=== PATIENT | female | born 1980 | race Two or more races ===

== ENCOUNTER 2024-12-21 20:00 | Emergency (ER) | payer MEDICAID, SELFPAY ==
[2024-12-21 20:01] VITALS: BMI 26.5
[2024-12-21 20:44] VITALS: BP 150/89; PULSE 89; RESP 20; TEMP 36.9; O2SAT 97
--- NOTE | 2024-12-21 21:08 | XR_ITS ---
Examination: CT abdomen with intravenous contrast CT pelvis with intravenous contrast 2-D coronal reconstructions 2-D sagittal reconstructions Date and time of exam:November 23, 2024 1110 hrs. Indications: Onset right lower abdominal pain beginning 4 days ago. CTDI: vol (mGy) 7.45 DLP: (mGycm) 396 Technique: Multiple axial sections of the abdomen and pelvis have been obtained. 64 slice high-resolution scanner used. 3 mm axial sections have been obtained, post intravenous injection 60 cc [id number] 2-D sagittal, coronal reconstructions obtained. Low dose protocols were performed. One or more of the following dose reduction techniques were used; automated exposure control, adjustment of the mA and/or KV according to patient size, use of iterative reconstruction technique. Findings: No focal liver or splenic lesions Absent gallbladder No pancreatic or adrenal mass No renal or ureteral calculi, no hydronephrosis Aorta normal size Normal appendix No bowel obstruction No diverticulitis Anteverted uterus Bilateral small ovarian follicular cysts Mild free fluid in the pelvis Urinary bladder intact Mild disc narrowing posteriorly L5-S1 Impression: No renal or ureteral calculi, no hydronephrosis Normal appendix No bowel obstruction diverticulitis or free air Mild free fluid in the pelvis, consider pelvic sonography follow-up
--- NOTE | 2024-12-21 21:09 | EDRME_ITS ---
Rapid Medical Screening Exam [facility] Arrival date/time: 12/21/24 20:00 44F with history of cardiomyopathy (managed with meds) presents to ED with 3 days of worsening RLQ pain and N/V. Patient denies dysuria/hematuria, vaginal bleeding, and diarrhea. Chief Complaint: Abdominal Pain Vital signs: Vital Signs Temperature 98.4 F 12/21/24 20:44 Pulse Rate 89 12/21/24 20:44 Respiratory Rate 20 12/21/24 20:44 Blood Pressure 150/89 H 12/21/24 20:44 Pulse Oximetry (%) 97 12/21/24 20:44 Oxygen Delivery Method Room Air 12/21/24 20:44
[2024-12-21] MEDS: ONDANSETRON INJ 2 MG/ML INJ 2 ML 4 MG IV (21:37)
[2024-12-21 21:39] LABS: Basophils % (Auto) 1 % (0-2.5); Eosinophils # (Auto) 0.1 Thou/mm3 (0.0-0.5); Eosinophils % (Auto) 1 % (0-10); Hematocrit 35.9 % (36.0-46.0); Hemoglobin 11.8 g/dL (12.0-16.0); Immature Granulocytes % (Auto) 0 % (0-0); Immature Granulocytes Auto 0.01 Thou/mm3 (0.00-0.00); Lymphocytes # (Auto) 2.1 Thou/mm3 (1.0-4.8); Lymphocytes % (Auto) 30 % (10-50); Mean Corpuscular HGB Conc 32.9 g/dl (31.0-37.0); Mean Corpuscular Hemoglobin 26.6 pg (25.0-35.0); Mean Corpuscular Volume 81 fL (80-100); Monocytes # (Auto) 0.6 Thou/mm3 (0.0-0.8); Monocytes % (Auto) 8 % (0-12); Neutrophils # (Auto) 4.2 Thou/mm3 (1.8-7.7); Neutrophils % (Auto) 61 % (37-80); Nucleated Red Blood Cell % 0 /100 WBC (0); Platelet Count 233 Thou/mm3 (140-440); RDW Standard Deviation 46.6 fL (36.4-46.3); Red Blood Count 4.43 Miln/mm3 (4.00-5.20)
[2024-12-21 21:57] LABS: Collection Type, Urine Clean Catch
[2024-12-21 22:01] LABS: HCG Qualitative,Urine Negative
[2024-12-21 22:02] LABS: Bacteria,Urine Rare; Bilirubin,Urine Negative (Negative); Blood,Urine Negative (Negative); Clarity,Urine Clear (Clear/Hazy); Color,Urine Lt-Yellow (Lt Yel-Yel); Glucose, Urine Negative (Negative); Ketones,Urine Negative (Negative); Leukocyte Esterase,Urine Negative (Negative); Nitrite,Urine Negative (Negative); Protein,Urine Negative (Neg - Trace); RBC,Urine < 1 /hpf (0-3); Specific Gravity,Urine 1.018 (1.001-1.035); Squamous Epithelial Cell,Urine 2 /hpf (0-5); Urobilinogen,Urine Negative mg/dL (0.0-1.0); WBC,Urine 1 /hpf (0-5)
[2024-12-21 22:07] LABS: Amphetamine/Methamp Scrn,U Negative (Negative); Barbiturate Screen,Urine Negative (Negative); Benzodiazepines Screen,Urine Negative (Negative); Benzoylecgonine Screen, Ur Negative (Negative); Fentanyl Screen,Urine Negative (Negative); Opiate Screen,Urine Negative (Negative); THC Screen,Urine Negative (Negative)
[2024-12-21 22:14] LABS: Alanine Aminotransferase < 7 U/L (10-49); Albumin, Serum 4.3 gm/dL (3.5-5.0); Albumin/Globulin Ratio 1.7 (1.2-2.2); Alkaline Phosphatase 55 U/L (46-116); Anion Gap 8 (7-16); Aspartate Amino Transferase 27 U/L (0-34); BUN/Creatinine Ratio 20 Ratio (12-20); Bilirubin,Total 0.3 mg/dL (0.3-1.2); Blood Urea Nitrogen 16 mg/dL (9-23); Carbon Dioxide 23.5 mMol/L (20.0-31.0); Chloride 110 mMol/L (98-107); Creatinine (Component) 0.8 mg/dL (0.6-1.3); Estimated Creatinine Clearance 80.7 mL/min (>60); Globulin 2.5 gm/dL (2.3-3.5); Glucose 102 mg/dL (74-106); Lipase 50 U/L (12-53); Osmolality,Calculated 282 (275-295); Potassium 4.2 mMol/L (3.4-5.1); Sodium 141 mMol/L (136-145); Total Protein 6.8 gm/dL (5.7-8.2); eGFR > 60 See Note
[2024-12-21] MEDS: MORPHINE SULF INJ 10 MG/ML VIAL 5 MG IVP (23:13)
--- NOTE | 2024-12-22 00:39 | XR_ITS ---
Examination: Transvaginal ultrasound of the pelvis, complete Technique: Transvaginal sonographic images pelvis performed using nice scale imaging Exam date and time: December 22, 2024 0153 hrs. Indications: Left-sided pelvic pain beginning 4 days ago, worse today Findings: Uterus 9.7 cm in mental status 0.2 cm No uterine mass Right ovary 2.6 cm arterial flow Left ovary 3.4 cm arterial flow 18 mm follicular cyst Impression: Left ovarian follicular cyst, 13 x 15 mm.
--- NOTE | 2024-12-22 00:40 | PD.EDABDPN ---
ED Abdominal Pain RME/HPI General Chief Complaint: Abdominal Pain Stated complaint: ABD PAIN, BACK PAIN Time seen by provider: 12/22/24 00:37 Arrival date/time: 12/21/24 20:00 44F with history of HTN, cholecystectomy, cardiomyopathy (managed with meds) presents to ED with 3 days of worsening RLQ pain and N/V. Patient denies dysuria/hematuria, vaginal bleeding, and diarrhea. Patient also denies vaginal discharge and concern for STD. Limitations: no limitations RME / HPI RME / HPI narrative: 12/21/24 20:00 44F with history of cardiomyopathy (managed with meds) presents to ED with 3 days of worsening RLQ pain and N/V. Patient denies dysuria/hematuria, vaginal bleeding, and diarrhea. Related Data Home Medications ?Medication ?Instructions ?Recorded ?Confirmed atorvastatin 20 mg tablet 20 mg PO QDAY 11/11/19 05/05/20 carvedilol 12.5 mg tablet 12.5 mg PO BID 11/11/19 05/05/20 cholecalciferol (vitamin D3) 100 50,000 unit PO QWEEK 11/11/19 05/05/20 mcg (4,000 unit) capsule (Vitamin D3) escitalopram oxalate 10 mg tablet 10 mg PO QDAY 11/11/19 05/05/20 furosemide 20 mg tablet 20 mg PO QDAY 11/11/19 05/05/20 losartan 50 mg tablet 50 mg PO QDAY 11/11/19 05/05/20 spironolactone 25 mg tablet 25 mg PO QDAY 11/11/19 05/05/20 Previous Rx's ?Medication ?Instructions ?Recorded docusate sodium 100 mg capsule 100 mg PO BID #20 caps 11/12/19 (Colace) hydrocodone 5 mg-acetaminophen 325 1 tab PO Q6H PRN pain #14 tabs 11/12/19 mg tablet ([place]) ibuprofen 800 mg tablet 800 mg PO TID PRN pain #30 tabs 07/19/21 ferrous sulfate 324 mg (65 mg 324 mg PO TID #90 tabs 02/05/24 iron) tablet,delayed release pantoprazole 40 mg tablet,delayed 40 mg PO QDAY #30 tabs 02/05/24 release (Protonix) Allergies Allergy/AdvReac Type Severity Reaction Status Date / Time No Known Allergies Allergy Verified 02/01/24 20:12 Past Medical History Past Medical History NEUROLOGIC: Negative Neurological Disorders or Seizures CARDIAC: Positive Cardiac Disorders, Atrial Fibrillation, Hypercholesterolemia (TAKES MED), Cardiomyopathy and Hypertension (TAKES MED); Negative Congestive Heart Failure, Edema, Cellulitis or Varicose Veins RESPIRATORY: Negative Chronic Obstructive Pulmonary Disease (COPD), Asthma, Tuberculosis or Sleep Apnea GASTROINTESTINAL: Positive Gastrointestinal Disorders, Gall Bladder Disease (LAP) and Obesity; Negative Hepatitis GENITOURINARY: Negative Genitourinary Disorders or Renal Disease REPRODUCTIVE: Positive Previous Pregnancies (X3) MUSCULOSKELETAL: Positive Musculoskeletal Disorders and Myasthenia Gravis ENDOCRINE: Positive Diabetes Mellitus Type 2; Negative Endocrine Disorders or Diabetes Mellitus Type 1 HEMATOLOGIC: Negative Blood Disorders or Sickle Cell Disease PSYCHO/SOCIAL: Positive Depression and Anxiety OTHER HISTORY: Positive Hospitalization (HOSP DUE TO IRREGULAR HR 06/07) and Chicken Pox; Negative Autoimmune Disease, Shingles, Falls, Blood Transfusions, Blood Transfusion Reaction, Anesthesia Reactions, Chemotherapy, Radiation Therapy, MRSA, Measles, Mumps or Cancer Family History FAMILY HISTORY: Positive Family Cardiac Disorders (MOTHER (HTN)) and Family Surgery (MOTHER); Negative Family Respiratory Disorders, Family Gastrointestinal Problems, Family Cancer or Family Anesthesia Reaction Surgical History SURGICAL: Positive Cardiac Surgery, Angiogram, Tubal Ligation and Section (X2); Negative Pacemaker, Ear Surgery, Eye Surgery or Nose Surgery Social History SMOKING STATUS: Current some day smoker ED Exam General Limitations: Present no limitations General appearance: Present alert and in no apparent distress Head Head exam: Present atraumatic Eye Eye exam: Present normal appearance, PERRL and EOMI ENT ENT exam: Present normal exam, normal oropharynx and mucous membranes moist Neck Neck exam: Present normal inspection, full ROM and trachea midline Chest Chest inspection: Present normal inspection and symmetric chest wall rise Respiratory Respiratory exam: Present normal lung sounds bilaterally Cardiovascular Cardiovascular exam: Present regular rate, normal rhythm and normal heart sounds Abdominal Exam Abdominal exam: Present soft and normal bowel sounds Abdominal tenderness: Present RLQ (pelvic) Extremities Exam Extremities exam: Present normal inspection and full ROM Back Exam Back exam: Present normal inspection and full ROM Neurological Exam Neurological exam: Present alert, oriented X3 and CN II-XII intact Psychiatric Psychiatric exam: Present normal affect and normal mood Skin Skin exam: Present warm, dry, intact and normal color Course Quality Measures none Orders Category Date Time Status CT Screening NOW Care 12/21/24 21:08 Active Insert IV NOW Care 12/21/24 21:[address] abdomen pelvis w con Stat Exams 12/21/24 21:08 Completed US transvaginal Stat Exams 12/22/24 00:39 Taken CBC Stat Lab 12/21/24 21:34 Completed CMP [Comprehensive Metabolic Panel] Stat Lab 12/21/24 21:34 Completed Drug Screen,Urine Stat Lab 12/21/24 21:43 Completed HCG Qualitative,Urine Stat Lab 12/21/24 21:43 Completed Lipase Stat Lab 12/21/24 21:34 Completed UA [Urinalysis] Stat Lab 12/21/24 21:43 Completed Ketorolac Inj [Toradol Inj] Med 12/22/24 00:39 Discontinued 30 mg IVP X1 ONE Morphine Inj Med 12/21/24 22:59 Discontinued 5 mg IVP X1 ONE Ondansetron Inj [Zofran Inj] Med 12/21/24 21:08 Discontinued 4 mg IV X1 ONE Vital Signs Vital signs: Vital Signs Temperature 98.4 F 12/21/24 20:44 Pulse Rate 89 12/21/24 20:44 Respiratory Rate 20 12/21/24 20:44 Blood Pressure 150/89 H 12/21/24 20:44 Pulse Oximetry (%) 97 12/21/24 20:44 Oxygen Delivery Method Room Air 12/21/24 20:44 O2 at 97% on RA and WNLs Abdominal Pain MDM MDM Narrative MDM Narrative:: 44F with history of HTN, cholecystectomy, cardiomyopathy (managed with meds) presents to ED with 3 days of worsening RLQ pain and N/V. Patient denies dysuria/hematuria, vaginal bleeding, and diarrhea. Patient also denies vaginal discharge and concern for STD. Physical exam reveals RLQ/pelvic tenderness. Patient is afebrile, calm, and alert. CT some free fluid in pelvis, but otherwise unremarkable. No leukocytosis. CMP unremarkable. Lipase normal. HCG neg. Tox screen neg. US pelvic unremarkable as well. L ovarian cyst, but patient's pain is on R side, so unlikely cause of symptoms. Toradol provided much better pain relief than Morphine. Marina Manager given. Patient data External records reviewed:: [facility] previous records Clinical information provided by:: patient Social determinants that could affect healthcare access:: none Patient has the following chronic illnesses:: HTN, cholecystectomy, cardiomyopathy How is presenting disease/condition affected by chronic disease/condition?: uneffected by Evaluation data The following diagnostics were reviewed and interpreted by me:: lab results and radiology exam(s) Lab and/or radiology exams considered but not ordered:: ordered Interpretation Summary: above Medications / Prescriptions Medications or Prescriptions considered but not ordered:: ordered Medication administrations:: Medication Administration History Discontinued Medications Ketorolac Tromethamine (Ketorolac Inj 30 Mg/Ml Vial) 30 mg IVP X1 ONE Stop: 12/22/24 00:40 Last Admin: 12/22/24 01:09 Dose: 30 mg Documented By: OXANA Morphine Sulfate (Morphine Sulf Inj 10 Mg/Ml Vial) 5 mg IVP X1 ONE Stop: 12/21/24 23:00 Last Admin: 12/21/24 23:13 Dose: 5 mg Documented By: OXANA Ondansetron HCl (Ondansetron Inj 2 Mg/Ml Inj 2 Ml) 4 mg IV X1 ONE; Protocol Stop: 12/21/24 21:09 Last Admin: 12/21/24 21:37 Dose: 4 mg Documented By: OXANA above Consultations Consultation(s) initiated? (list below): No Diagnosis Differential diagnosis abdominal pain: abdominal pain, acute appendicitis, calculus of kidney, constipation, diverticulitis, endometriosis, gastroenteritis, pancreatitis, small bowel obstruction and other (torsion, pelvic pain) Most likely diagnosis given after review of the tests above:: pelvic pain Admission Indicated Admission indicated?: not indicated Admission Request Was there a request for admission?: No Disposition Plan Disposition Plan: Discharge Discharge Attestation Discharge Attestation: The patient and all family members were given an opportunity to ask questions and understood the discharge instructions. Discharge instructions specifically effects, indications for sooner follow up or return to the emergency department, and the expected course of current diagnosis. Patient condition: Stable Discharge Plan Plan Patient Disposition: HOME (Self Care) Disposition Comment: Stable Prescriptions/Referrals Prescriptions/Med Rec: No Action losartan 50 mg Tablet 50 mg PO QDAY atorvastatin 20 mg Tablet 20 mg PO QDAY carvedilol 12.5 mg Tablet 12.5 mg PO BID spironolactone 25 mg Tablet 25 mg PO QDAY furosemide 20 mg Tablet 20 mg PO QDAY escitalopram oxalate 10 mg Tablet 10 mg PO QDAY Vitamin D3 4,000 unit Capsule 50,000 unit PO QWEEK docusate sodium [Colace] 100 mg capsule 100 mg PO BID Qty: 20 0RF hydrocodone-acetaminophen [[place]] 5-325 mg tablet 1 tab PO Q6H MDD 4 PRN (Reason: pain) Qty: 14 0RF ibuprofen 800 mg tablet 800 mg PO TID PRN (Reason: pain) Qty: 30 0RF ferrous sulfate 324 mg (65 mg iron) tablet,delayed release (DR/EC) 324 mg PO TID Qty: 90 0RF pantoprazole [Protonix] 40 mg tablet,delayed release (DR/EC) 40 mg PO QDAY Qty: 30 0RF Referrals: No Primary/Family,Physician [Primary Care Provider] - In 1 week Problem List Clinical Impression: Pelvic pain Patient/Caregiver Discharge Instructions Education Materials: ED Pelvic Pain, Unknown Cause Additional Instructions: Please follow-up with PCP/OBGYN within 24-48 hours and return immediately if symptoms worsen. NSAIDs tend to work better for this type of pain. Print Language: Wolof Stand Alone Forms: Patient Portal Info Letter GABRIEL/JESS Supervising Physician GABRIEL/JESS Supervising Physician: Dr. Arias
[2024-12-22] MEDS: KETOROLAC INJ 30 MG/ML VIAL IVP (01:09)
[2024-12-22 01:34] VITALS: BP 148/85; PULSE 65; RESP 17; TEMP 37.1; O2SAT 99
--- NOTE | 2024-12-22 03:27 | PRELIM_ITS ---
Pelvic ultrasound (transabdominal and transvaginal) with Doppler and wave Doppler spectral analysis. December 22, 2024 0153 hours Clinical history: Pelvic pain; free fluid in pelvis on CT Technique: Real-time, grayscale, transabdominal and transvaginal pelvic ultrasound was performed using Duplex scanning including arterial inflow, venous outflow, color and spectral Doppler. Comparison: None. Findings: The uterus is normal in size measuring 9.7 x 4.6 x 5.3 cm. The endometrium is unremarkable and measures 0.2 cm. The right ovary measures 2.6 x 2.4 x 2.0 cm and is unremarkable. The left ovary measures 3.4 x 1.9 x 2.1 cm, with a mildly complex left ovarian cystic lesion measuring 1.3 x 1.1 x 1.5 cm. Both ovaries demonstrate color flow and spectral waveforms on Doppler evaluation. There is no adnexal mass. There is no free fluid on the submitted images. Impression: 1. No evidence of ovarian torsion. 2. No evidence of free fluid in the pelvis. 3. Left ovarian cystic lesion, probably functional. Consider follow-up. Report Electronically Signed By: Mekhi Murray 12/22/2024 3:26:25 AM [EST]
== END 2024-12-22 03:48 | disposition home or self-care (01) ==
PROVIDERS: Physician Assistant; Emergency Provider Emergency Medicine
DX: N83.02 Follicular cyst of left ovary (principal); R10.31 Right lower quadrant pain
CPT/HCPCS: 36415; 74177; 76830; 80053; 80307; 81001; 81025; 83690; 85025; 96374; 96375; 99285; A4649; J1885; J2270; J2405; Q9967

== ENCOUNTER 2025-02-14 18:24 | Emergency (ER) | payer MEDICAID, SELFPAY ==
[2025-02-14 18:25] VITALS: BMI 26.4
[2025-02-14 19:02] VITALS: BP 135/79; PULSE 73; RESP 18; TEMP 37.2; O2SAT 100
--- NOTE | 2025-02-14 19:09 | EKG_ITS ---
[facility] Test Date: 2025-02-14 Pat Name: CINDY NEGRETE Department: Room: - Gender: Female Anesthesia Attending: : 1980 Requested By: Jesús Ortega Order Number: [id number] Reading MD: Jesús Ortega Measurements Intervals [place] Rate: 72 P: 73 LA: 196 QRS: -4 QRSD: 89 T: 88 QT: 396 QTc: 435 Interpretive Statements SINUS RHYTHM WITH OCCASIONAL VENTRICULAR PREMATURE COMPLEXES POSSIBLE LEFT ATRIAL ENLARGEMENT [-0.1mV P-WAVE IN V1/V2] POSSIBLE ANTERIOR MYOCARDIAL INFARCTION , OF INDETERMINATE AGE [30 ms Q WAVE IN V3/V4, OR R < 0.2 mV IN V4] Compared to ECG 07/12/2019 16:07:59 Myocardial infarct finding now present T-wave abnormality no longer present /store/S0/[id number].pdf
--- NOTE | 2025-02-14 19:09 | XR_ITS ---
Examination: PA chest single view TECHNIQUE: Upright PA chest single view Exam date 9: February 14, 2025 1917 hours Comparison August 16, 2019 INDICATIONS: Chest pain and headaches beginning 3 days ago. FINDINGS: Early pneumonia left base obscuring detail left hemidiaphragm Right lung clear No significant cardiac enlargement No pulmonary edema IMPRESSION: Left base pneumonia
--- NOTE | 2025-02-14 19:09 | PD.EDRME ---
Rapid Medical Screening Exam RME Arrival date/time: 02/14/25 18:24 Chief Complaint: Chest Pain Time Seen by Provider: 02/14/25 18:47 Vital signs: Vital Signs Temperature 98.9 F 02/14/25 19:02 Pulse Rate 73 02/14/25 19:02 Respiratory Rate 18 02/14/25 19:02 Blood Pressure 135/79 H 02/14/25 19:02 Pulse Oximetry (%) 100 02/14/25 19:02 Oxygen Delivery Method Room Air 02/14/25 19:02 RME Narrative: Chest tightness and headache x3 days. hx HTN and HF per patient
[2025-02-14 19:40] LABS: Basophils % (Auto) 1 % (0-2.5); Eosinophils # (Auto) 0.1 Thou/mm3 (0.0-0.5); Eosinophils % (Auto) 1 % (0-10); Hematocrit 33.4 % (36.0-46.0); Hemoglobin 10.8 g/dL (12.0-16.0); Immature Granulocytes % (Auto) 0 % (0-0); Lymphocytes # (Auto) 2.1 Thou/mm3 (1.0-4.8); Lymphocytes % (Auto) 37 % (10-50); Mean Corpuscular HGB Conc 32.3 g/dl (31.0-37.0); Mean Corpuscular Hemoglobin 26.8 pg (25.0-35.0); Mean Corpuscular Volume 83 fL (80-100); Monocytes # (Auto) 0.5 Thou/mm3 (0.0-0.8); Monocytes % (Auto) 10 % (0-12); Neutrophils % (Auto) 52 % (37-80); Nucleated Red Blood Cell % 0 /100 WBC (0); Platelet Count 302 Thou/mm3 (140-440); RDW Standard Deviation 41.2 fL (36.4-46.3); Red Blood Count 4.03 Miln/mm3 (4.00-5.20); White Blood Count 5.7 Thou/mm3 (3.6-11.0)
[2025-02-14 19:58] LABS: B-Type Natriuretic Peptide 33 pg/mL (0-100)
[2025-02-14 19:59] LABS: Alanine Aminotransferase < 7 U/L (10-49); Albumin, Serum 4.6 gm/dL (3.5-5.0); Albumin/Globulin Ratio 1.9 (1.2-2.2); Alkaline Phosphatase 52 U/L (46-116); Anion Gap 6 (7-16); Aspartate Amino Transferase 20 U/L (0-34); BUN/Creatinine Ratio 21 Ratio (12-20); Bilirubin,Total 0.4 mg/dL (0.3-1.2); Blood Urea Nitrogen 15 mg/dL (9-23); Calcium 8.8 mg/dL (8.3-10.6); Calcium (Corrected) 8.8 mg/dL (8.5-10.1); Carbon Dioxide 24.3 mMol/L (20.0-31.0); Chloride 107 mMol/L (98-107); Creatinine (Component) 0.7 mg/dL (0.6-1.3); Estimated Creatinine Clearance 95.7 mL/min (>60); Globulin 2.4 gm/dL (2.3-3.5); Glucose 92 mg/dL (74-106); Osmolality,Calculated 274 (275-295); Potassium 4.3 mMol/L (3.4-5.1); Sodium 137 mMol/L (136-145); Troponin I < 0.002 ng/mL (0.0-0.045); eGFR > 60 See Note
[2025-02-14 20:34] LABS: Collection Type, Urine Clean Catch
[2025-02-14 20:42] LABS: HCG Qualitative,Urine Negative
[2025-02-14 20:45] LABS: Amorphous Crystals,Urine Present (Absent); Bacteria,Urine 1+; Bilirubin,Urine Negative (Negative); Blood,Urine Negative (Negative); Clarity,Urine Clear (Clear/Hazy); Color,Urine Yellow (Lt Yel-Yel); Glucose, Urine Negative (Negative); Ketones,Urine Negative (Negative); Leukocyte Esterase,Urine Negative (Negative); Nitrite,Urine Negative (Negative); Protein,Urine Trace (Neg - Trace); RBC,Urine 5 /hpf (0-3); Specific Gravity,Urine 1.032 (1.001-1.035); Squamous Epithelial Cell,Urine 8 /hpf (0-5); Urobilinogen,Urine Negative mg/dL (0.0-1.0); WBC,Urine 1 /hpf (0-5)
--- NOTE | 2025-02-14 21:12 | PD.EDADULT ---
ED General RME/HPI General Chief complaint: Chest Pain Stated complaint: CHEST PAIN OFF AND ON X4 DAYS Time Seen by Provider: 02/14/25 18:47 Arrival date/time: 02/14/25 18:24 CC: Chest tightness with intermittent with a headache, also mild shortness of breath when walking. Patient has a history of cardiomyopathy secondary to delivery. Patient currently is has no chest pain shortness of breath or difficulty breathing but is somewhat anxious. She is awake alert oriented with no specific requests or complaints RME / HPI RME / HPI narrative: Chest tightness and headache x3 days. hx HTN and HF per patient Related Data Home Medications ?Medication ?Instructions ?Recorded ?Confirmed atorvastatin 20 mg tablet 20 mg PO QDAY 11/11/19 05/05/20 carvedilol 12.5 mg tablet 12.5 mg PO BID 11/11/19 05/05/20 cholecalciferol (vitamin D3) 100 50,000 unit PO QWEEK 11/11/19 05/05/20 mcg (4,000 unit) capsule (Vitamin D3) escitalopram oxalate 10 mg tablet 10 mg PO QDAY 11/11/19 05/05/20 furosemide 20 mg tablet 20 mg PO QDAY 11/11/19 05/05/20 losartan 50 mg tablet 50 mg PO QDAY 11/11/19 05/05/20 spironolactone 25 mg tablet 25 mg PO QDAY 11/11/19 05/05/20 Previous Rx's ?Medication ?Instructions ?Recorded docusate sodium 100 mg capsule 100 mg PO BID #20 caps 11/12/19 (Colace) hydrocodone 5 mg-acetaminophen 325 1 tab PO Q6H PRN pain #14 tabs 11/12/19 mg tablet ([place]) ibuprofen 800 mg tablet 800 mg PO TID PRN pain #30 tabs 07/19/21 ferrous sulfate 324 mg (65 mg 324 mg PO TID #90 tabs 02/05/24 iron) tablet,delayed release pantoprazole 40 mg tablet,delayed 40 mg PO QDAY #30 tabs 02/05/24 release (Protonix) doxycycline hyclate 100 mg capsule 100 mg PO BID #14 caps 02/14/25 prednisone 20 mg tablet See Taper PO BID 3 days #6 tabs 02/14/25 Allergies Allergy/AdvReac Type Severity Reaction Status Date / Time No Known Allergies Allergy Verified 02/01/24 20:12 Review of Systems Review of Systems Narrative Review of Systems: GEN: No fever, no chills, no weight loss EYES: No discharge, no visual changes, no pain HEENT: No ear pain, no congestion, no sore throat PULM: No shortness of breath, no cough, no congestion CV: No chest pain, no dyspnea on exertion, no palpitations GI: No nausea, no vomiting, no diarrhea, no pain, no constipation : No frequency, no urgency, no dysuria MUSC/SKEL: No joint pain, no back pain SKIN: No rash PSYCH: No hallucinations, no depression HEME/LYMPH: No easy bleeding or bruising tendencies NEURO: No weakness, no headache Past Medical History Past Medical History NEUROLOGIC: Negative Neurological Disorders or Seizures CARDIAC: Positive Cardiac Disorders, Atrial Fibrillation, Hypercholesterolemia, Congestive Heart Failure, Cardiomyopathy and Hypertension; Negative Edema, Cellulitis or Varicose Veins RESPIRATORY: Negative Chronic Obstructive Pulmonary Disease (COPD), Asthma, Tuberculosis or Sleep Apnea GASTROINTESTINAL: Positive Gastrointestinal Disorders, Gall Bladder Disease and Obesity; Negative Hepatitis GENITOURINARY: Negative Genitourinary Disorders or Renal Disease REPRODUCTIVE: Positive Previous Pregnancies MUSCULOSKELETAL: Positive Musculoskeletal Disorders and Myasthenia Gravis ENDOCRINE: Positive Diabetes Mellitus Type 2; Negative Endocrine Disorders or Diabetes Mellitus Type 1 HEMATOLOGIC: Negative Blood Disorders or Sickle Cell Disease PSYCHO/SOCIAL: Positive Depression and Anxiety OTHER HISTORY: Positive Hospitalization and Chicken Pox; Negative Autoimmune Disease, Shingles, Falls, Blood Transfusions, Blood Transfusion Reaction, Anesthesia Reactions, Chemotherapy, Radiation Therapy, MRSA, Measles, Mumps or Cancer Family History FAMILY HISTORY: Positive Family Cardiac Disorders and Family Surgery; Negative Family Respiratory Disorders, Family Gastrointestinal Problems, Family Cancer or Family Anesthesia Reaction Surgical History SURGICAL: Positive Cardiac Surgery, Angiogram, Tubal Ligation and Section; Negative Pacemaker, Ear Surgery, Eye Surgery or Nose Surgery Social History SMOKING STATUS: Former smoker ED Exam Narrative Physical exam: GEN: No fever, no chills, no weight loss EYES: No discharge, no visual changes, no pain HEENT: No ear pain, no congestion, no sore throat PULM: No shortness of breath, no cough, no congestion CV: No chest pain, no dyspnea on exertion, no palpitations GI: No nausea, no vomiting, no diarrhea, no pain, no constipation : No frequency, no urgency, no dysuria MUSC/SKEL: No joint pain, no back pain SKIN: No rash PSYCH: No hallucinations, no depression HEME/LYMPH: No easy bleeding or bruising tendencies NEURO: No weakness, no headache Course Quality Measures none Orders Category Date Time Status EKG (ED ONLY) *Do not use* NOW Care 02/14/25 19:09 Completed CXR [XR chest 1V] Stat Exams 02/14/25 19:09 Completed EKG (ED Only) Stat Exams 02/14/25 19:09 Draft BNP [B-Type Natriuretic Peptide] Stat Lab 02/14/25 19:26 Completed CBC Stat Lab 02/14/25 19:26 Completed CMP [Comprehensive Metabolic Panel] Stat Lab 02/14/25 19:26 Completed HCG Qualitative,Urine Stat Lab 02/14/25 19:56 Completed Troponin I Stat Lab 02/14/25 19:26 Completed UA [Urinalysis] Stat Lab 02/14/25 19:56 Completed Doxycycline [Vibramycin] Med 02/14/25 21:06 Once 100 mg PO X1 ONE Vital Signs Vital signs: Vital Signs Temperature 98.9 F 02/14/25 19:02 Pulse Rate 73 02/14/25 19:02 Respiratory Rate 18 02/14/25 19:02 Blood Pressure 135/79 H 02/14/25 19:02 Pulse Oximetry (%) 100 02/14/25 19:02 Oxygen Delivery Method Room Air 02/14/25 19:02 Discharge Plan Plan Patient Disposition: HOME (Self Care) Patient condition on transfer: Stable Prescriptions/Referrals Prescriptions/Med Rec: New doxycycline hyclate 100 mg capsule 100 mg PO BID Qty: 14 0RF prednisone 20 mg tablet See Taper PO BID 3 Days Qty: 6 0RF Taper: Prednisone Taper 20 mg DAILY for 2 Days and 0 Hour 10 mg DAILY for 2 Days and 0 Hour 5 mg DAILY for 7 Days and 0 Hour No Action losartan 50 mg Tablet 50 mg PO QDAY atorvastatin 20 mg Tablet 20 mg PO QDAY carvedilol 12.5 mg Tablet 12.5 mg PO BID spironolactone 25 mg Tablet 25 mg PO QDAY furosemide 20 mg Tablet 20 mg PO QDAY escitalopram oxalate 10 mg Tablet 10 mg PO QDAY Vitamin D3 4,000 unit Capsule 50,000 unit PO QWEEK docusate sodium [Colace] 100 mg capsule 100 mg PO BID Qty: 20 0RF hydrocodone-acetaminophen [[place]] 5-325 mg tablet 1 tab PO Q6H MDD 4 PRN (Reason: pain) Qty: 14 0RF ibuprofen 800 mg tablet 800 mg PO TID PRN (Reason: pain) Qty: 30 0RF ferrous sulfate 324 mg (65 mg iron) tablet,delayed release (DR/EC) 324 mg PO TID Qty: 90 0RF pantoprazole [Protonix] 40 mg tablet,delayed release (DR/EC) 40 mg PO QDAY Qty: 30 0RF Referrals: Radha Fontaien, PARTS PROFESSIONAL [Primary Care Provider] - In 1 week Problem List Clinical Impression: Pneumonia Patient/Caregiver Discharge Instructions Education Materials: ED Pneumonia (Adult) Print Language: Lithuanian Stand Alone Forms: SNADEC Award Info., Patient Portal Info Letter, Work/School Release PA/DIRECTOR ORACLE Supervising Physician PA/DIRECTOR ORACLE Supervising Physician: Tomasz Miranda ENP MDM Patient Acuity High Acuity (complete MDM) Clinical Information Provided by: patient Medical Records reviewed [facility] Meds/Rx considered, not ordered None Labs/Rad/Tests considered, not ordered None Chronic Illness/Social Conditions Explain: -induced cardiomyopathy EKG EKG Interpretation(s): EKG performed 1910 shows a ventricular rate of 72 SC interval 196 QRS of 89 QTc of 420 this is sinus rhythm with PVC. Labs Lab(s) Interpretation(s): CBC shows no acute leukocytosis and mild anemia of 10.8 and 33.4 no thrombocytopenia CMP shows no acute electrolyte imbalances renal impairment transaminitis or T. bili elevation. Urine is positive for epithelial cells enforce crystals and 1+ bacteria but there are no leukocyte esterase or nitrites. Imaging Imaging Interpretation(s): Chest x-ray interpreted radiology shows the patient may have a left lower lobe pneumonia, given the patient's vague complaints which also include a mild cough more inclined to start this patient on antibiotics never follow-up with the primary care Medication Administration(s) Medication Administration History Doxycycline Hyclate (Doxycycline 100 Mg Tablet) 100 mg PO X1 ONE Stop: 02/14/25 21:07
[2025-02-14] MEDS: DOXYCYCLINE 100 MG TABLET PO (21:19)
[2025-02-14 21:27] VITALS: BP 135/84; PULSE 68; RESP 18; O2SAT 98
== END 2025-02-14 21:28 | disposition home or self-care (01) ==
PROVIDERS: Physician Assistant; Emergency Provider Emergency Medicine; PCP Nurse Practitioner Family
DX: J18.9 Pneumonia, unspecified organism (principal); I49.3 Ventricular premature depolarization; I11.0 Hypertensive heart disease with heart failure; I42.9 Cardiomyopathy, unspecified; E78.00 Pure hypercholesterolemia, unspecified; I48.91 Unspecified atrial fibrillation; I50.9 Heart failure, unspecified; Z87.891 Personal history of nicotine dependence
CPT/HCPCS: 36415; 71045; 80053; 81001; 81025; 83880; 84484; 85025; 93005; 99283; A9270

== ENCOUNTER 2025-07-28 00:32 | Emergency (ER) | payer MEDICAID, SELFPAY ==
--- NOTE | 2025-07-28 00:33 | PD.EDCHEST ---
ED Chest Pain RME/HPI General Chief Complaint: Anxiety Stated Complaint: ANXIETY Time Seen by Provider: 07/28/25 01:10 Arrival date/time: 07/28/25 00:32 RME / HPI RME / HPI narrative: See MDM for Dr. Braun's HPI documentation. Related Data Home Medications ?Medication ?Instructions ?Recorded ?Confirmed atorvastatin 20 mg tablet 20 mg PO QDAY 11/11/19 05/05/20 carvedilol 12.5 mg tablet 12.5 mg PO BID 11/11/19 05/05/20 cholecalciferol (vitamin D3) 100 50,000 unit PO QWEEK 11/11/19 05/05/20 mcg (4,000 unit) capsule (Vitamin D3) escitalopram oxalate 10 mg tablet 10 mg PO QDAY 11/11/19 05/05/20 furosemide 20 mg tablet 20 mg PO QDAY 11/11/19 05/05/20 losartan 50 mg tablet 50 mg PO QDAY 11/11/19 05/05/20 spironolactone 25 mg tablet 25 mg PO QDAY 11/11/19 05/05/20 Previous Rx's ?Medication ?Instructions ?Recorded docusate sodium 100 mg capsule 100 mg PO BID #20 caps 11/12/19 (Colace) hydrocodone 5 mg-acetaminophen 325 1 tab PO Q6H PRN pain #14 tabs 11/12/ mg tablet ([place]) ibuprofen 800 mg tablet 800 mg PO TID PRN pain #30 tabs 07/19/21 ferrous sulfate 324 mg (65 mg 324 mg PO TID #90 tabs 02/05/24 iron) tablet,delayed release pantoprazole 40 mg tablet,delayed 40 mg PO QDAY #30 tabs 02/05/24 release (Protonix) doxycycline hyclate 100 mg capsule 100 mg PO BID #14 caps 02/14/25 Allergies Allergy/AdvReac Type Severity Reaction Status Date / Time No Known Allergies Allergy Verified 02/01/24 20:12 Review of Systems Review of Systems Systems Reviewed: All systems reviewed, normal except as documented Past Medical History Past Medical History NEUROLOGIC: Negative Neurological Disorders or Seizures CARDIAC: Positive Cardiac Disorders, Atrial Fibrillation, Hypercholesterolemia, Congestive Heart Failure, Cardiomyopathy and Hypertension; Negative Edema, Cellulitis or Varicose Veins RESPIRATORY: Negative Chronic Obstructive Pulmonary Disease (COPD), Asthma, Tuberculosis or Sleep Apnea GASTROINTESTINAL: Positive Gastrointestinal Disorders, Gall Bladder Disease and Obesity; Negative Hepatitis GENITOURINARY: Negative Genitourinary Disorders or Renal Disease REPRODUCTIVE: Positive Previous Pregnancies MUSCULOSKELETAL: Positive Musculoskeletal Disorders and Myasthenia Gravis ENDOCRINE: Positive Diabetes Mellitus Type 2; Negative Endocrine Disorders or Diabetes Mellitus Type 1 HEMATOLOGIC: Negative Blood Disorders or Sickle Cell Disease PSYCHO/SOCIAL: Positive Depression and Anxiety OTHER HISTORY: Positive Hospitalization and Chicken Pox; Negative Autoimmune Disease, Shingles, Falls, Blood Transfusions, Blood Transfusion Reaction, Anesthesia Reactions, Chemotherapy, Radiation Therapy, MRSA, Measles, Mumps or Cancer Family History FAMILY HISTORY: Positive Family Cardiac Disorders and Family Surgery; Negative Family Respiratory Disorders, Family Gastrointestinal Problems, Family Cancer or Family Anesthesia Reaction Surgical History SURGICAL: Positive Cardiac Surgery, Angiogram, Tubal Ligation and Section; Negative Pacemaker, Ear Surgery, Eye Surgery or Nose Surgery Social History SMOKING STATUS: Former smoker ED Exam Narrative Physical exam: See MDM for Dr. Braun's physical exam documentation. Course Course Course Narrative: CXR is ordered for determining the etiology of chest pain. Quality Measures none Orders Category Date Time Status Bedside COVID-19 Antigen Test NOW Care 07/28/25 00:[address] Screening NOW Care 07/28/25 04:03 Active EKG (ED ONLY) *Do not use* NOW Care 07/28/25 00:58 Completed Saline [Insert IV] NOW Care 07/28/25 00:[address] angio chest Stat Exams 07/28/25 04:03 Ordered EKG (ED Only) Stat Exams 07/28/25 00:58 Ordered XR chest 1V portable Stat Exams 07/28/25 00:58 Taken Alcohol, Blood Medical Stat Lab 07/28/25 01:35 Completed BNP [B-Type Natriuretic Peptide] Stat Lab 07/28/25 01:35 Completed Bilirubin,Direct Stat Lab 07/28/25 01:35 Completed CBC Stat Lab 07/28/25 01:35 Completed CMP [Comprehensive Metabolic Panel] Stat Lab 07/28/25 01:35 Completed D-Dimer Stat Lab 07/28/25 01:35 Completed Drug Screen,Urine Stat Lab 07/28/25 01:03 Completed HCG,Qualitative Serum Stat Lab 07/28/25 01:35 Completed Influenza A & B Rapid Panel Stat Lab 07/28/25 00:57 Ordered Magnesium Stat Lab 07/28/25 01:35 Completed TSH [Thyroid Stimulating Hormone] Stat Lab 07/28/25 01:35 Completed Troponin I Stat Lab 07/28/25 01:35 Completed UA, C/S IF [Urinalysis, C/S if Indicated] Stat Lab 07/28/25 01:03 Completed Ondansetron Inj [Zofran Inj] Med 07/28/25 00:58 Discontinued 4 mg IVP X1 ONE Ringers Lactated 1000 ml [Lactated Ringers] 1,000 ml Med 07/28/25 02:29 Discontinued IV 1,000 mls/hr Sodium Chloride 0.9% 1000 ml [Ns] 1,000 ml Med 07/28/25 00:58 Discontinued IV 999 mls/hr Vital Signs Vital signs: Vital Signs Temperature 98.2 F 07/28/25 00:47 Pulse Rate 90 07/28/25 00:47 Respiratory Rate 19 07/28/25 00:47 Blood Pressure 121/78 07/28/25 00:47 Pulse Oximetry (%) 97 07/28/25 00:47 Oxygen Delivery Method Room Air 07/28/25 00:47 Chest Pain MDM Narrative MDM Narrative:: This section includes all my notes and documentations, including HPI, PE, and ED course. Aaron Braun MD HPI: 44yo female with history of CHF, aFib, HTN BIBA from home with several hours of central chest pain. Worse with breathing. No recent illness with cough or fever. She has trouble describing the quality and quantity of the pain. No other complaints. ROS: All negative except as documented in HPI. Physical Exam: General: Alert and oriented. No acute distress when remaining still. Eyes: Conjunctivae and lids clear. ENT: No nasal congestion. Neck: Supple. Heart: RRR. Lungs: No respiratory distress. Good air movement. No rhonchi, wheezing, rales. Chest: No tenderness to palpation. Abdomen: Soft and nontender. Normal bowel sounds. No distension. No rebound or guarding. Back: No CVA tenderness. Skin: Warm and dry. Neuro: Alert and oriented X 3. I reviewed EMS notes. I reviewed all diagnostic test results. My interpretation of the EKG is sinus rhythm with nonspecific ST-T changes. My interpretation of the chest x-ray is no acute findings, official radiology report is pending. Blood/urine tests remarkable for alcohol 258.7 and D-dimer 1080. Chest CTA pending. At this point, diagnoses include: Chest pain I will intoxication Treatment here included: IV fluid Zofran 4 mg IV Patient remained stable. At 6 AM on 07/28/2025, the care of the patient was transferred to Dr. Balbuena. Aaron Braun MD Patient data External records reviewed:: [facility] previous records (Per chart review, patient was seen here on 02/14/25 for pneumonia.) Clinical information provided by:: patient Social determinants that could affect healthcare access:: none Patient has the following chronic illnesses:: CHF, aFib, HTN, DM How is presenting disease/condition affected by chronic disease/condition?: exacerbated by Evaluation data The following diagnostics were reviewed and interpreted by me:: lab results, radiology exam(s) and EKG tracing(s) (My interpretation of the EKG is: Sinus rhythm (93 bpm) with nonspecific ST-T changes. Aaron Braun MD) Lab and/or radiology exams considered but not ordered:: none Interpretation Summary: I reviewed all diagnostic test results. My interpretation of the EKG is sinus rhythm with nonspecific ST-T changes. My interpretation of the chest x-ray is no acute findings, official radiology report is pending. Blood/urine tests remarkable for alcohol 258.7 and D-dimer 1080. Chest CTA pending. Medications / Prescriptions Medications or Prescriptions considered but not ordered:: none Medication administrations:: Medication Administration History Discontinued Medications Sodium Chloride (Ns) 1,000 mls @ 999 mls/hr IV .Q1H1M ONE Stop: 07/28/25 01:58 Last Infusion: 07/28/25 02:50 Dose: Infused Documented By: Admin: 07/28/25 01:37 Dose: 999 mls/hr Documented By: KATHLEEN Lactated Ringer's (Lactated Ringers) 1,000 mls @ 1,000 mls/hr IV .Q1H ONE Stop: 07/28/25 03:28 Last Infusion: 07/28/25 04:14 Dose: Infused Documented By: Admin: 07/28/25 03:14 Dose: 1,000 mls/hr Documented By: KATHLEEN Ondansetron HCl (Ondansetron Inj 2 Mg/Ml Inj 2 Ml) 4 mg IVP X1 ONE; Protocol Stop: 07/28/25 00:59 Last Admin: 07/28/25 01:32 Dose: 4 mg Documented By: KATHLEEN Treatment here included: IV fluid Zofran 4 mg IV Consultations Consultation(s) initiated? (list below): No Diagnosis Chest Pain Differential Diagnosis: pneumothorax, stable angina, unstable angina pectoris, atypical chest pain, st elevation myocardial infarction and costochondritis Most likely diagnosis given after review of the tests above:: Complete diagnostic tests are pending. Admission Indicated Admission indicated?: not indicated Explain why admission is indicated or not indicated:: Complete diagnostic tests are pending. Admission Request Was there a request for admission?: No Disposition Plan Disposition Plan: other (specify) (Signed out to Dr. Balbuena at 6 AM.) Discharge Plan Prescriptions/Referrals Prescriptions/Med Rec: No Action losartan 50 mg Tablet 50 mg PO QDAY atorvastatin 20 mg Tablet 20 mg PO QDAY carvedilol 12.5 mg Tablet 12.5 mg PO BID spironolactone 25 mg Tablet 25 mg PO QDAY furosemide 20 mg Tablet 20 mg PO QDAY escitalopram oxalate 10 mg Tablet 10 mg PO QDAY Vitamin D3 4,000 unit Capsule 50,000 unit PO QWEEK docusate sodium [Colace] 100 mg capsule 100 mg PO BID Qty: 20 0RF hydrocodone-acetaminophen [[place]] 5-325 mg tablet 1 tab PO Q6H MDD 4 PRN (Reason: pain) Qty: 14 0RF ibuprofen 800 mg tablet 800 mg PO TID PRN (Reason: pain) Qty: 30 0RF ferrous sulfate 324 mg (65 mg iron) tablet,delayed release (DR/EC) 324 mg PO TID Qty: 90 0RF pantoprazole [Protonix] 40 mg tablet,delayed release (DR/EC) 40 mg PO QDAY Qty: 30 0RF doxycycline hyclate 100 mg capsule 100 mg PO BID Qty: 14 0RF Referrals: No Primary/Family,Physician [Primary Care Provider] - In 1 week Problem List Clinical Impression: Chest pain, Alcohol intoxication Patient/Caregiver Discharge Instructions Print Language: Syriac
[2025-07-28 00:47] VITALS: BP 121/78; PULSE 90; RESP 19; TEMP 36.8; O2SAT 97
[2025-07-28 00:49] VITALS: BMI 25.9
--- NOTE | 2025-07-28 00:58 | XR_ITS ---
EXAMINATION: AP chest single view TECHNIQUE: AP portable upright chest single view Date and time: July 28, 2025, 0135 hours, comparison February 06, 2025 INDICATIONS: Nausea vomiting chest pain shortness of breath 3 days FINDINGS: Normal heart size No pneumonia or pulmonary edema Mild osteopenia IMPRESSION: No active disease Left shoulder calcific tendinitis
[2025-07-28 01:11] LABS: Collection Type, Urine Clean Catch; Squamous Epithelial Cell,Urine 0 /hpf (0-5)
[2025-07-28 01:21] VITALS: PULSE 76; RESP 16; O2SAT 98
[2025-07-28 01:24] VITALS: BMI 26.2
[2025-07-28 01:24] LABS: Bilirubin,Urine Negative (Negative); Blood,Urine Negative (Negative); Clarity,Urine Clear (Clear/Hazy); Color,Urine Colorless (Lt Yel-Yel); Culture Indicated,Urine Not Indicated; Glucose, Urine Negative (Negative); Ketones,Urine Negative (Negative); Leukocyte Esterase,Urine Negative (Negative); Nitrite,Urine Negative (Negative); PH,Urine 6.5 (5.0-7.0); Protein,Urine Negative (Neg - Trace); RBC,Urine < 1 /hpf (0-3); Specific Gravity,Urine 1.003 (1.001-1.035); Urobilinogen,Urine Negative mg/dL (0.0-1.0); WBC,Urine 1 /hpf (0-5)
[2025-07-28 01:29] LABS: Amphetamine/Methamp Scrn,U Negative (Negative); Barbiturate Screen,Urine Negative (Negative); Benzodiazepines Screen,Urine Negative (Negative); Benzoylecgonine Screen, Ur Negative (Negative); Fentanyl Screen,Urine Negative (Negative); Opiate Screen,Urine Negative (Negative); THC Screen,Urine Negative (Negative)
[2025-07-28] MEDS: ONDANSETRON INJ 2 MG/ML INJ 2 ML 4 MG IVP (01:32)
[2025-07-28] MEDS: SODIUM CHLORIDE 0.9% 1000 ML 1,000 ML 999 ML IV (01:37)
[2025-07-28 01:48] LABS: Basophils # (Auto) 0.1 Thou/mm3 (0.0-0.2); Basophils % (Auto) 1 % (0-2.5); Eosinophils # (Auto) 0.0 Thou/mm3 (0.0-0.5); Eosinophils % (Auto) 1 % (0-10); Hematocrit 32.1 % (36.0-46.0); Hemoglobin 10.2 g/dL (12.0-16.0); Immature Granulocytes Auto 0.01 Thou/mm3 (0.00-0.00); Lymphocytes # (Auto) 1.6 Thou/mm3 (1.0-4.8); Lymphocytes % (Auto) 27 % (10-50); Mean Corpuscular HGB Conc 31.8 g/dl (31.0-37.0); Mean Corpuscular Hemoglobin 24.4 pg (25.0-35.0); Mean Corpuscular Volume 77 fL (80-100); Monocytes # (Auto) 0.4 Thou/mm3 (0.0-0.8); Monocytes % (Auto) 7 % (0-12); Neutrophils # (Auto) 3.9 Thou/mm3 (1.8-7.7); Neutrophils % (Auto) 65 % (37-80); Nucleated Red Blood Cell # 0.00 Thou/mm3 (0.00-0.00); Nucleated Red Blood Cell % 0 /100 WBC (0); Platelet Count 251 Thou/mm3 (140-440); RDW Standard Deviation 40.7 fL (36.4-46.3); Red Blood Count 4.18 Miln/mm3 (4.00-5.20); White Blood Count 6.0 Thou/mm3 (3.6-11.0)
[2025-07-28 02:10] LABS: HCG,Qualitative Serum Negative
[2025-07-28 02:25] LABS: Alanine Aminotransferase < 7 U/L (10-49); Albumin, Serum 4.5 gm/dL (3.5-5.0); Albumin/Globulin Ratio 2.0 (1.2-2.2); Alcohol, Blood Medical 258.7 mg/dL (0-10.0); Alkaline Phosphatase 53 U/L (46-116); Anion Gap 16 (7-16); Aspartate Amino Transferase 33 U/L (0-34); BUN/Creatinine Ratio 13 Ratio (12-20); Bilirubin,Direct < 0.1 mg/dL (0.0-0.3); Bilirubin,Total 0.2 mg/dL (0.3-1.2); Blood Urea Nitrogen 8 mg/dL (9-23); Calcium 9.1 mg/dL (8.3-10.6); Calcium (Corrected) 9.1 mg/dL (8.5-10.1); Carbon Dioxide 20.5 mMol/L (20.0-31.0); Chloride 111 mMol/L (98-107); Creatinine (Component) 0.6 mg/dL (0.6-1.3); Estimated Creatinine Clearance 106.9 mL/min (>60); Globulin 2.3 gm/dL (2.3-3.5); Glucose 100 mg/dL (74-106); Magnesium 2.2 mg/dL (1.6-2.6); Osmolality,Calculated 290 (275-295); Potassium 3.6 mMol/L (3.4-5.1); Sodium 147 mMol/L (136-145); Thyroid Stimulating Hormone 1.40 uIU/mL (0.55-4.78); Total Protein 6.8 gm/dL (5.7-8.2); Troponin I < 0.020 ng/mL (0.0-0.045); eGFR > 60 See Note
[2025-07-28] MEDS: RINGERS LACTATED 1000 ML 1,000 ML IV (03:14)
[2025-07-28 03:36] LABS: D-Dimer 1080 ng/mL (<600)
[2025-07-28 03:38] LABS: B-Type Natriuretic Peptide < 20 pg/mL (0-100)
--- NOTE | 2025-07-28 04:03 | XR_ITS ---
Examination: CTA chest with intravenous contrast 2-D reconstructions 3-D reconstructions, vascular Date and time of exam: July 28, 2025, 0514 hours INDICATIONS: Shortness of breath chest pain today, elevated D-dimer on laboratory examination today CTDI: vol (mGy) 7.82 DLP: (mGycm) 305 Technique: Multiple axial sections of the thorax have been obtained. 3 mm slice thickness, from below the hemidiaphragms to above the apices of the lungs. Mediastinal and lung density settings have been obtained. 2-D sagittal and coronal reconstructions. 3-D angiographic renderings, 3-D volume renderings, 3D post processing, vascular maximum intensity projections obtained. Contrast administered is 100 cc [id number] intravenous. Low dose protocols were performed. One or more of the following dose reduction techniques were used; automated exposure control, adjustment of the mA and/or KV according to patient size, use of iterative reconstruction technique. Findings: No thoracic aortic aneurysm dilatation or dissection No pulmonary artery filling defects No paratracheal tracheobronchial or bronchopulmonary adenopathy 3 mm pulmonary nodule left lower lobe, 4 mm pulmonary nodule anterior segment right upper lobe No pneumonia, pulmonary edema or pleural disease No visualized liver or splenic lesion No extrahepatic biliary tract dilatation. Normal pancreas normal adrenal glands No hydronephrosis IMPRESSION: Negative for pulmonary artery emboli. No pneumonia, pulmonary edema or pleural disease Subcentimeter pulmonary nodules as above, suggest 6-month follow-up CT chest without contrast
[2025-07-28 04:18] VITALS: BP 114/66; PULSE 94; RESP 14; O2SAT 99
[2025-07-28 05:32] LABS: Influenza A Ag Negative; Influenza B Ag Negative
--- NOTE | 2025-07-28 06:08 | PRELIM_ITS ---
CT angiogram of the chest with intravenous contrast (axial sections with sagittal and coronal reformats) July 28, 2025 0514 hours Clinical History: Shortness of breath and High dimer. Technique:Helical axial sections with sagittal and coronal reformats of the chest were obtained with intravenous contrast. Iterative reconstruction technique was employed to reduce patient radiation exposure. 3D/MIP reconstructed images were also provided. Comparison: No prior study is available for comparison. Findings: There is no filling defect within the pulmonary artery divisions to suggest pulmonary thromboembolism. The mediastinum demonstrates no evidence of mass or lymphadenopathy. The thoracic aorta is unremarkable. There is no pericardial effusion. The lungs are clear. No evidence of pleural effusion or pneumothorax. The osseous structures are unremarkable. The gallbladder is surgically absent. Degenerative changes are identified in the spine. Impression: No CT evidence of pulmonary thromboembolism or other acute intrathoracic pathology. Report Electronically Signed By: Matt Dillon 07/28/2025 6:07:47 AM [EST]
[2025-07-28 07:57] VITALS: BP 141/75; PULSE 100; RESP 18; TEMP 36.9; O2SAT 96
--- NOTE | 2025-07-28 08:03 | EDNOTE_ITS ---
Emergency Room Addendum Addendum Narrative: Care assumed from Dr. Braun. Past medical, surgical, social and family history reviewed. Vitals and home medications reviewed. Results and treatment plan discussed. I will assume the care of the patient at this time and will follow the patient. Please refer to the emergency department record for history and examination from initial visit. CT angiogram of the chest was performed. The D-dimer was 1080. The CT angio was negative for pulmonary embolism or pneumonia. The CT angio did show a small nodule and suggested that the patient should have a 6-month follow- up CT chest. Patient was discharged home in good condition. She will continue her usual medications. Patient remained stable while under my care.
[2025-07-28 09:01] VITALS: BP 120/71; PULSE 74; RESP 16; TEMP 36.9; O2SAT 98
== END 2025-07-28 09:03 | disposition home or self-care (01) ==
PROVIDERS: Emergency Medicine; Emergency Provider Family Medicine
DX: R07.9 Chest pain, unspecified (principal); R91.1 Solitary pulmonary nodule; F10.129 Alcohol abuse with intoxication, unspecified; R94.31 Abnormal electrocardiogram [ECG] [EKG]; E78.00 Pure hypercholesterolemia, unspecified; I11.0 Hypertensive heart disease with heart failure; I50.9 Heart failure, unspecified; I42.9 Cardiomyopathy, unspecified; I48.91 Unspecified atrial fibrillation; Y90.8 Blood alcohol level of 240 mg/100 ml or more; Z87.891 Personal history of nicotine dependence
CPT/HCPCS: 36415; 71045; 71275; 80053; 80307; 80320; 81001; 82248; 83735; 83880; 84443; 84484; 84703; 85025; 85379; 87502; 87811; 93005; 96361; 96374; 99285; A4649; J2405; J7030; J7120; Q9967; G0480

== ENCOUNTER → 2025-08-12 | Outpatient (CLI) | payer MEDICAID, SELFPAY ==
--- NOTE | 2025-08-12 | XR_ITS ---
Examination: Right elbow 3 views Technique: Elbow AP, oblique, lateral 3 views Exam date and time: August 12, 2025, 0738 hours INDICATIONS: Bilateral pain beginning 3 weeks ago. FINDINGS: No fracture or dislocation. No foreign body IMPRESSION: No fracture or dislocation.
== END | disposition home or self-care (01) ==
PROVIDERS: PCP Student in an Organized Health Care Education/Training Program; Referring Provider Student in an Organized Health Care Education/Training Program; Visit Provider Student in an Organized Health Care Education/Training Program
DX: M25.521 Pain in right elbow (principal)
CPT/HCPCS: 73080